=== PATIENT | female | born 1970 | race Caucasian/White ===

== ENCOUNTER 2016-07-31 19:23 | Inpatient (IN) | payer OTHER ==
[~2016-07-31] VITALS: Ht 154.9 cm; Wt 56.7 kg
[2016-07-31] MEDS ORDERED: CLON2 PO (19:46)
[2016-07-31] MEDS ORDERED: METF500T4 PO (19:46)
[2016-07-31] MEDS ORDERED: LEVO125T4 PO (19:46)
[2016-07-31] MEDS ORDERED: LORA1TAB3 PO (19:46)
[2016-07-31] MEDS ORDERED: TOPI25 PO (19:46)
[2016-07-31 19:57] LABS: GLUCOSE,POINT OF CARE 64 MG/DL (70-110)
[2016-07-31] MEDS ORDERED: ACTIVATED CHARCOAL 50 GM/240 ML SUSPENSION PO ONE (20:00)
[2016-07-31 20:05] LABS: BASOPHILS # (AUTO) 0.06 K/uL (0.00-0.20); BASOPHILS % (AUTO) 0.9 % (0.0-2.0); EOSINOPHILS # (AUTO) 0.08 K/uL (0.00-0.70); EOSINOPHILS % (AUTO) 1.15 % (1.0-6.0); HEMATOCRIT 35.5 % (36-46); HEMOGLOBIN 11.7 g/dL (12.0-16.0); LYMPHOCYTES # (AUTO) 2.1 K/uL (1.0-4.8); LYMPHOCYTES % (AUTO) 31.1 % (22.0-44.0); MEAN CORPUSCULAR HGB CONC 32.8 G/dL (31.0-37.0); MEAN CORPUSCULAR VOLUME 85 fL (80-100); MONOCYTES # (AUTO) 0.5 K/uL (0.1-1.0); MONOCYTES % (AUTO) 7.6 % (2.0-9.0); NEUTROPHILS # (AUTO) 4.1 K/uL (1.8-7.7); NEUTROPHILS % (AUTO) 59.3 % (40.0-70.0); PLATELET COUNT (AUTO) 346 K/uL (150-450); RED BLOOD CELL COUNT(AUTO) 4.17 MIL/uL (4.00-5.20); RED CELL DISTRIBUTION WIDTH 18.7 % (11.5-14.5); WHITE BLOOD COUNT (AUTO) 6.9 K/uL (4.5-11.0)
[2016-07-31 20:14] LABS: ANION GAP 9 mmol/L (8-16); CALCIUM, TOTAL 9.4 mg/dL (8.8-10.5); CARBON DIOXIDE 27 mmol/L (22-29); CHLORIDE 104 mmol/L (98-107); CREATININE 0.63 mg/dL (0.60-1.30); GLOMERULAR FILTR. RATE CALC > 60 mL/min (>60); POTASSIUM 3.6 mmol/L (3.5-5.1); SODIUM SERUM 140 mmol/L (136-145); UREA NITROGEN, BLOOD 18 mg/dL (7-18)
[2016-07-31 20:16] LABS: SALICYLATE 0.7 mg/dL (2.8-20.0)
[2016-07-31 20:19] LABS: ALANINE AMINOTRANSFERASE 17 U/L (12-78); ALBUMIN 4.5 g/dL (3.4-5.0); ASPARTATE AMINOTRANSFERASE 13 U/L (15-37); BILIRUBIN,TOTAL 0.3 mg/dL (0.1-1.0); TOTAL PROTEIN, SERUM 8.5 g/dL (6.4-8.2)
[2016-07-31 20:20] LABS: ACETAMINOPHEN < 2 mcg/mL (10-30)
[2016-07-31] MEDS ORDERED: SODIUM CHLORIDE 0.9% 1,000 ML IV ONE (20:45)
[2016-08-01] MEDS ORDERED: ZOLPIDEM TARTRATE 10 MG TABLET PO PRN (00:15)
[2016-08-01] MEDS ORDERED: FISH1CAP50 PO (01:32)
[2016-08-01] MEDS ORDERED: FERR-89 PO ×2 (01:32→11:12)
[2016-08-01] MEDS ORDERED: FOLI1 PO (01:32)
[2016-08-01] MEDS ORDERED: CYCL10 PO (02:26)
[2016-08-01] MEDS ORDERED: CYCLOBENZAPRINE HCL 10 MG TABLET PO ONE (02:30)
[2016-08-01] MEDS ORDERED: FERR250T2 PO (04:18)
[2016-08-01] MEDS ORDERED: FISH OIL/OMEGA-3 FATTY ACIDS 500 MG CAPSULE PO ONE (04:30)
[2016-08-01] MEDS ORDERED: FERROUS SULFATE 300 MG/5 ML LIQUID UDCUP PO ONE (04:30)
[2016-08-01] MEDS ORDERED: ATOR40TA28 PO (04:40)
[2016-08-01] MEDS ORDERED: ATORVASTATIN CALCIUM 40 MG TABLET PO ONE (04:45)
[2016-08-01] MEDS: FLUoxetine HCL 20 MG CAPSULE PO SCH (11:30)
[2016-08-01 12:11] VITALS: BP 125/85
[2016-08-01] MEDS ORDERED: TOPIRAMATE 25 MG TABLET PO SCH (12:30)
[2016-08-01] MEDS: FISH OIL/OMEGA-3 FATTY ACIDS 500 MG CAPSULE PO SCH (12:47)
[2016-08-01] MEDS: LORazepam 1 MG TABLET PO PRN ×2 (12:51→20:46)
[2016-08-01] MEDS: FOLIC ACID 1 MG TABLET PO SCH (12:51)
[2016-08-01] MEDS: FERROUS SULFATE 325 MG EC TABLET PO SCH ×2 (12:57→16:18)
[2016-08-01] MEDS: LEVOTHYROXINE SODIUM 125 MCG TABLET PO SCH (14:35)
[2016-08-01] MEDS ORDERED: PNEUMOCOCCAL VACCINE POLYVALENT 0.5 ML VIAL [PPSV23] IM ONE (14:45)
[2016-08-01 16:14] VITALS: BP 107/74
[2016-08-01] MEDS: TOPIRAMATE 25 MG TABLET PO SCH (16:18)
[2016-08-01] MEDS: MetFORMIN HCL 500 MG TABLET PO SCH (16:57)
[2016-08-02 01:26] VITALS: BP 112/71
[2016-08-02] MEDS: MetFORMIN HCL 500 MG TABLET PO SCH ×2 (06:32→16:32)
[2016-08-02] MEDS: LEVOTHYROXINE SODIUM 125 MCG TABLET PO SCH (06:32)
[2016-08-02] MEDS: FERROUS SULFATE 325 MG EC TABLET PO SCH ×3 (06:32→16:32)
[2016-08-02] MEDS: TOPIRAMATE 25 MG TABLET PO SCH ×2 (08:42→16:32)
[2016-08-02] MEDS: FOLIC ACID 1 MG TABLET PO SCH (08:42)
[2016-08-02] MEDS: FISH OIL/OMEGA-3 FATTY ACIDS 500 MG CAPSULE PO SCH (08:42)
[2016-08-02] MEDS: FLUoxetine HCL 20 MG CAPSULE PO SCH (08:45)
[2016-08-02] MEDS: LORazepam 1 MG TABLET PO PRN ×2 (11:41→20:15)
[2016-08-02 16:00] VITALS: BP 113/76
[2016-08-02] MEDS ORDERED: CYCLOBENZAPRINE HCL 10 MG TABLET PO SCH (21:45)
[2016-08-03 05:37] VITALS: BP 110/63
[2016-08-03] MEDS: LEVOTHYROXINE SODIUM 125 MCG TABLET PO SCH (06:36)
[2016-08-03] MEDS: FERROUS SULFATE 325 MG EC TABLET PO SCH (06:36)
[2016-08-03] MEDS: MetFORMIN HCL 500 MG TABLET PO SCH (06:36)
[2016-08-03] MEDS ORDERED: OMEG-12 PO (07:44)
[2016-08-03 08:04] VITALS: BP 110/64
[2016-08-03] MEDS: FISH OIL/OMEGA-3 FATTY ACIDS 500 MG CAPSULE PO SCH (08:16)
[2016-08-03] MEDS: TOPIRAMATE 25 MG TABLET PO SCH (08:16)
[2016-08-03] MEDS: FOLIC ACID 1 MG TABLET PO SCH (08:16)
[2016-08-03] MEDS: FLUoxetine HCL 20 MG CAPSULE PO SCH (08:19)
== END 2016-08-03 10:40 | disposition home or self-care (01) | DRG 918 ==
LOC: EMS 19:25 → B3A 08-01 07:52
PROVIDERS: ADMIT Psychiatry & Neurology Child & Adolescent Psychiatry; ATTEND Psychiatry & Neurology Child & Adolescent Psychiatry
DX: T42.4X2A Poisoning by benzodiazepines, intentional self-harm, initial encounter (principal); E03.9 Hypothyroidism, unspecified; E11.9 Type 2 diabetes mellitus without complications; F32.9 Major depressive disorder, single episode, unspecified; F41.9 Anxiety disorder, unspecified; G43.909 Migraine, unspecified, not intractable, without status migrainosus; D64.9 Anemia, unspecified; E78.5 Hyperlipidemia, unspecified; Y93.89 Activity, other specified; Y92.89 Other specified places as the place of occurrence of the external cause; Y99.8 Other external cause status; Z79.899 Other long term (current) drug therapy; Z90.49 Acquired absence of other specified parts of digestive tract; Z28.21 Immunization not carried out because of patient refusal
CPT/HCPCS: 82962; 84443; 93005; 96360; 96361; 99291; G0480; G0481; J7030

== ENCOUNTER 2016-12-06 15:47 | Inpatient (IN) | payer OTHER ==
[~2016-12-06] VITALS: Ht 152.4 cm; Wt 53.8 kg
[~2016-12-06 15:47] MED LIST: FERR-89 PO; FOLI1 PO; LEVO125T4 PO; METF500T4 PO; OMEG-12 PO
[2016-12-06 17:20] LABS: BASOPHILS % (AUTO) 0.3 % (0.0-2.0); EOSINOPHILS % (AUTO) 0.1 % (1.0-6.0); HEMATOCRIT 36.7 % (36-46); HEMOGLOBIN 12.3 g/dL (12.0-16.0); LYMPHOCYTES # (AUTO) 1.2 K/uL (1.0-4.8); LYMPHOCYTES % (AUTO) 14.1 % (22.0-44.0); MEAN CORPUSCULAR HEMOGLOBIN 29.9 pg (26.0-34.0); MEAN CORPUSCULAR HGB CONC 33.5 G/dL (31.0-37.0); MEAN CORPUSCULAR VOLUME 89 fL (80-100); MONOCYTES # (AUTO) 0.7 K/uL (0.1-1.0); MONOCYTES % (AUTO) 8.5 % (2.0-9.0); NEUTROPHILS # (AUTO) 6.6 K/uL (1.8-7.7); PLATELET COUNT (AUTO) 384 K/uL (150-450); RED BLOOD CELL COUNT(AUTO) 4.11 MIL/uL (4.00-5.20); RED CELL DISTRIBUTION WIDTH 13.1 % (11.5-14.5); WHITE BLOOD COUNT (AUTO) 8.6 K/uL (4.5-11.0)
[2016-12-06 17:39] LABS: ANION GAP 12 mmol/L (8-16); CALCIUM, TOTAL 9.9 mg/dL (8.8-10.5); CARBON DIOXIDE 27 mmol/L (22-29); CHLORIDE 105 mmol/L (98-107); CREATININE 0.77 mg/dL (0.60-1.30); GLOMERULAR FILTR. RATE CALC > 60 mL/min (>60); POTASSIUM 3.7 mmol/L (3.5-5.1); SODIUM SERUM 144 mmol/L (136-145); UREA NITROGEN, BLOOD 10 mg/dL (7-18)
[2016-12-06 17:45] LABS: ALANINE AMINOTRANSFERASE 14 U/L (12-78); ALBUMIN 4.1 g/dL (3.4-5.0); ASPARTATE AMINOTRANSFERASE 10 U/L (15-37); BILIRUBIN,TOTAL 0.3 mg/dL (0.1-1.0)
[2016-12-06] MEDS ORDERED: LEVO1CAP6 PO (19:11)
[2016-12-06] MEDS ORDERED: RIZA10TA27 PO (19:11)
[2016-12-06] MEDS ORDERED: ACETAMINOPHEN 500 MG TABLET PO ONE (19:15)
[2016-12-06] MEDS ORDERED: LEVO15TA6 PO (19:19)
[2016-12-06] MEDS ORDERED: HALOPERIDOL 5 MG TABLET PO PRN (19:30)
[2016-12-06 19:46] LABS: APPEARANCE,URINE CLOUDY (CLEAR); GLUCOSE, URINE (UA) NEGATIVE (NEGATIVE); KETONES,URINE NEGATIVE (NEGATIVE); LEUKOCYTE ESTERASE ,URINE MODERATE (NEGATIVE); OCCULT BLOOD,URINE TRACE (NEGATIVE); PH,URINE 6.5 (5.0-8.0); PROTEIN,URINE SEE CONFIRM (NEGATIVE)
[2016-12-06] MEDS: LORazepam 2 MG TABLET PO PRN (19:49)
[2016-12-06 19:54] LABS: ADD UA MICROSCOPIC YES
[2016-12-06 20:07] LABS: SULFOSALICYLIC ACID,URINE 2+ (Negative)
[2016-12-06 20:08] LABS: SQUAMOUS EPITHELIAL CELL,UR Few /LPF (None Seen)
[2016-12-06 20:09] LABS: CALCIUM OXALATE CRYSTALS,UR Few /LPF (None Seen); WBC,URINE 26-50 /HPF (0-5)
[2016-12-06 20:10] LABS: RBC,URINE 0-2 /HPF (0-2)
[2016-12-06 20:13] LABS: CHOL/HDL RATIO 3.5 (3.9-5.7)
[2016-12-06 21:02] VITALS: BP 121/73
[2016-12-06 21:32] LABS: GLUCOSE,POINT OF CARE 139 MG/DL (70-110)
[2016-12-06] MEDS: MetFORMIN HCL 500 MG TABLET PO SCH (21:35)
[2016-12-06] MEDS ORDERED: INSULIN ASPART 100 UNITS/ML SQ PRN (21:45)
[2016-12-06] MEDS ORDERED: GLUCAGON,HUMAN RECOMBINANT 1 MG VIAL IM PRN (21:45)
[2016-12-07] MEDS: LORazepam 2 MG TABLET PO PRN (03:49)
[2016-12-07 03:50] VITALS: BP 118/77
[2016-12-07 06:23] LABS: GLUCOSE,POINT OF CARE 95 MG/DL (70-110)
[2016-12-07] MEDS: MetFORMIN HCL 500 MG TABLET PO SCH ×2 (07:00→07:02)
[2016-12-07] MEDS: FERROUS SULFATE 325 MG EC TABLET PO SCH ×3 (07:01→16:53)
[2016-12-07] MEDS: LEVOTHYROXINE SODIUM 125 MCG TABLET PO SCH (07:02)
[2016-12-07 08:11] VITALS: BP 122/76
[2016-12-07] MEDS: FOLIC ACID 1 MG TABLET PO SCH (08:15)
[2016-12-07] MEDS ORDERED: VENL-66 PO (09:54)
[2016-12-07] MEDS ORDERED: TOPI25 PO (09:54)
[2016-12-07 11:32] LABS: GLUCOSE,POINT OF CARE 106 MG/DL (70-110)
[2016-12-07] MEDS ORDERED: TOPIRAMATE 25 MG TABLET PO SCH (12:15)
[2016-12-07] MEDS ORDERED: VENLAFAXINE HCL 37.5 MG ER CAPSULE PO SCH (12:15)
[2016-12-07] MEDS: VENLAFAXINE HCL 75 MG ER CAPSULE PO SCH (13:12)
[2016-12-07 16:11] VITALS: BP 102/63
[2016-12-07 16:28] LABS: GLUCOSE,POINT OF CARE 87 MG/DL (70-110)
[2016-12-07] MEDS: LamoTRIgine 25 MG TABLET PO SCH (16:53)
[2016-12-07 20:43] LABS: GLUCOSE,POINT OF CARE 91 MG/DL (70-110)
[2016-12-07] MEDS: ZOLPIDEM TARTRATE 10 MG TABLET PO PRN (21:03)
[2016-12-08 00:59] VITALS: BP 109/72
[2016-12-08] MEDS: LEVOTHYROXINE SODIUM 125 MCG TABLET PO SCH (06:31)
[2016-12-08 06:32] LABS: GLUCOSE,POINT OF CARE 89 MG/DL (70-110)
[2016-12-08] MEDS: FERROUS SULFATE 325 MG EC TABLET PO SCH ×3 (06:52→17:05)
[2016-12-08] MEDS: FOLIC ACID 1 MG TABLET PO SCH (08:11)
[2016-12-08] MEDS: VENLAFAXINE HCL 75 MG ER CAPSULE PO SCH (08:11)
[2016-12-08] MEDS: LamoTRIgine 25 MG TABLET PO SCH ×2 (08:11→17:05)
[2016-12-08] MEDS: MetFORMIN HCL 500 MG TABLET PO SCH (08:11)
[2016-12-08 08:29] VITALS: BP 101/60
[2016-12-08 08:55] LABS: CREATINE KINASE, TOTAL 53 U/L (26-192); THYROID STIMULATING HORMONE 1.33 uIU/mL (0.36-3.74)
[2016-12-08 11:17] LABS: GLUCOSE,POINT OF CARE 84 MG/DL (70-110)
[2016-12-08] MEDS: LEVOFLOXACIN 500 MG TABLET PO SCH (13:09)
[2016-12-08 16:10] VITALS: BP 113/72
[2016-12-08 16:48] LABS: GLUCOSE,POINT OF CARE 84 MG/DL (70-110)
[2016-12-08 19:13] VITALS: BP 116/70
[2016-12-08] MEDS: RIZATRIPTAN BENZOATE 10 MG TABLET PO PRN (19:13)
[2016-12-08] MEDS: ZOLPIDEM TARTRATE 10 MG TABLET PO PRN (20:36)
[2016-12-09 01:08] VITALS: BP 110/62
[2016-12-09] MEDS ORDERED: PNEUMOCOCCAL VACCINE POLYVALENT 0.5 ML VIAL [PPSV23] IM ONE (03:30)
[2016-12-09 06:22] LABS: GLUCOSE,POINT OF CARE 89 MG/DL (70-110)
[2016-12-09] MEDS: LEVOTHYROXINE SODIUM 125 MCG TABLET PO SCH (06:40)
[2016-12-09] MEDS: FERROUS SULFATE 325 MG EC TABLET PO SCH ×2 (06:59→11:36)
[2016-12-09] MEDS ORDERED: LEVO250T2 PO (08:08)
[2016-12-09] MEDS ORDERED: LEVO125T95 PO (08:13)
[2016-12-09] MEDS: FOLIC ACID 1 MG TABLET PO SCH (08:37)
[2016-12-09] MEDS: LEVOFLOXACIN 500 MG TABLET PO SCH (08:37)
[2016-12-09] MEDS: MetFORMIN HCL 500 MG TABLET PO SCH (08:37)
[2016-12-09] MEDS: VENLAFAXINE HCL 75 MG ER CAPSULE PO SCH (08:37)
[2016-12-09] MEDS: LamoTRIgine 25 MG TABLET PO SCH (08:37)
[2016-12-09 09:22] VITALS: BP 105/67
[2016-12-09] MEDS: RIZATRIPTAN BENZOATE 10 MG TABLET PO PRN (12:46)
[2016-12-10] MEDS ORDERED: MetFORMIN HCL 500 MG TABLET PO SCH ×2 (06:30)
== END 2016-12-09 12:55 | disposition home or self-care (01) | DRG 885 ==
LOC: EMS 15:49 → B2X 19:45
PROVIDERS: ADMIT Psychiatry & Neurology Child & Adolescent Psychiatry; ATTEND Psychiatry & Neurology Child & Adolescent Psychiatry
PROC: 3E0234Z Introduction of Serum, Toxoid and Vaccine into Muscle, Percutaneous Approach (ICD-10-PCS; principal; 2016-12-09)
DX: F25.1 Schizoaffective disorder, depressive type (principal); R45.851 Suicidal ideations; E11.9 Type 2 diabetes mellitus without complications; N39.0 Urinary tract infection, site not specified; D64.9 Anemia, unspecified; E03.9 Hypothyroidism, unspecified; E78.5 Hyperlipidemia, unspecified; G43.909 Migraine, unspecified, not intractable, without status migrainosus; Z63.0 Problems in relationship with spouse or partner; Z80.42 Family history of malignant neoplasm of prostate; Z82.49 Family history of ischemic heart disease and other diseases of the circulatory system; Z83.3 Family history of diabetes mellitus; F41.9 Anxiety disorder, unspecified; Z23 Encounter for immunization; Z90.49 Acquired absence of other specified parts of digestive tract; Z79.899 Other long term (current) drug therapy; Z91.048 Other nonmedicinal substance allergy status
CPT/HCPCS: 82962; 83036; 84439; 84443; 87086; 90471; 99285; G0480

== ENCOUNTER 2018-03-03 07:35 | Day surgery (SDC) | payer OTHER ==
[~2018-03-03] VITALS: Ht 152.4 cm; Wt 61.0 kg
[~2018-03-03 07:35] MED LIST changes: -LEVO125T4 PO; +LEVO125T95 PO; +LEVO250T2 PO; +METF-960 PO; -METF500T4 PO; -OMEG-12 PO; +RIZA10TA27 PO; +TOPI25 PO; +VENL-66 PO
[2018-03-03] MEDS ORDERED: EPHEDrine SULFATE 50 MG/ML VIAL IM ONE (07:36)
[2018-03-03] MEDS ORDERED: GLYCOPYRROLATE 0.2 MG/ML VIAL IM ONE (07:36)
[2018-03-03] MEDS ORDERED: DEXAMETHASONE SOD PHOS 4 MG/ML VIAL IVP ONE (07:36)
[2018-03-03] MEDS ORDERED: PROPOFOL 1% 20 ML VIAL IVP ONE (07:36)
[2018-03-03] MEDS ORDERED: METOCLOPRAMIDE HCL 5 MG/ML 2 ML VIAL IVP ONE (07:36)
[2018-03-03] MEDS ORDERED: MIDAZOLAM HCL 2 MG/2 ML VIAL IVP ONE (07:36)
[2018-03-03] MEDS ORDERED: LIDOCAINE/PF 2% 5 ML SYRINGE IVP ONE (07:36)
[2018-03-03] MEDS ORDERED: FentaNYL CITRATE-PF 100 MCG/2 ML VIAL IVP ONE (07:36)
[2018-03-03] MEDS ORDERED: RINGERS SOLUTION,LACTATED 1,000 ML IV ONE (07:50)
[2018-03-03] MEDS ORDERED: FLUO-191 PO (08:24)
[2018-03-03] MEDS ORDERED: ATOR40TA28 PO (08:25)
[2018-03-03 08:38] LABS: GLUCOMETER DEV NAME(LOC) SDS 5; GLUCOSE,POINT OF CARE 87 MG/DL (70-110)
[2018-03-03] MEDS: RINGERS SOLUTION,LACTATED 1,000 ML IV ONE (08:38)
[2018-03-03] MEDS ORDERED: OXYGEN THERAPY IH SCH (09:15)
[2018-03-03] MEDS ORDERED: FentaNYL CITRATE-PF 100 MCG/2 ML VIAL IVP PRN (09:15)
[2018-03-03] MEDS ORDERED: HYDROmorphone 2 MG/ML SYRINGE IVP PRN (09:15)
[2018-03-03] MEDS ORDERED: MEPERIDINE-PF 25 MG/ML VIAL IVP PRN (09:15)
== END 2018-03-03 11:50 | disposition home or self-care (01) ==
LOC: SURGERY 07:35
PROVIDERS: ATTEND Obstetrics & Gynecology
DX: N88.8 Other specified noninflammatory disorders of cervix uteri (principal); N93.8 Other specified abnormal uterine and vaginal bleeding; E11.9 Type 2 diabetes mellitus without complications; K21.9 Gastro-esophageal reflux disease without esophagitis; F32.9 Major depressive disorder, single episode, unspecified; I34.1 Nonrheumatic mitral (valve) prolapse; N92.0 Excessive and frequent menstruation with regular cycle; I11.9 Hypertensive heart disease without heart failure; E03.9 Hypothyroidism, unspecified; F41.8 Other specified anxiety disorders; Z90.49 Acquired absence of other specified parts of digestive tract; Z91.011 Allergy to milk products; Z72.89 Other problems related to lifestyle; Z79.84 Long term (current) use of oral hypoglycemic drugs; Z98.890 Other specified postprocedural states; Z79.899 Other long term (current) drug therapy; Z80.42 Family history of malignant neoplasm of prostate; Z82.49 Family history of ischemic heart disease and other diseases of the circulatory system; Z83.3 Family history of diabetes mellitus
CPT/HCPCS: 88305; 93005; J0690; J1100; J2250; J2704; J2765; J3010; J3490; J7120